=== PATIENT | female | born 1970 | race Caucasian/White ===

== ENCOUNTER 2018-02-14 20:07 | Inpatient (IN) | payer BC ==
[~2018-02-14] VITALS: Ht 167.6 cm; Wt 69.6 kg
[~2018-02-14 20:07] MED LIST: BUPIVACAINE /PF 0.25% 30 ML VIAL INJ ONE; DEXAMETHASONE SOD PHOSPHATE 4 MG/ML VIAL IVP ONE; KETOROLAC TROMETHAMINE 30 MG VIAL IVP ONE; LR 1,000 ML IV.SOLN IV ONE; MIDAZOLAM HCL 5 MG/5 ML VIAL IVP ONE; NS 1000 ML IV.SOLN IV ONE; NS IRRIG SOLN 1000 ML IR ONE; ONDANSETRON HCL 4 MG/2 ML VIAL IVP ONE; PROPOFOL 200MG/ 20ML VIAL (DIPRIVAN) IV ONE; ROCURONIUM BROMIDE 10 MG/ML (ZEMURON) IV ONE; SEVOFLURANE 15 MIN GAS INH ONE; SUCCINYLCHOLINE CHLORIDE 20 MG/ML(QUELICIN) IVP ONE; fentaNYL CITRATE 250 MCG/5 ML AMP IV ONE; fentaNYL CITRATE/PF 100 MCG/2 ML AMP IVP ONE
--- NOTE | 2018-02-14 20:12 | NUR ---
Patient to ER bed 7 to gown for evaluation. Side rails up. Report given to Edward PADILLA.
[2018-02-14 20:15] VITALS: BP_SYST 127
--- NOTE | 2018-02-14 20:20 | NUR ---
Pt complain of sudden onset of RLQ abd pain 9/10 worse with ambulation, nausea and vomiting. Ruba diarrhea. pt on bed. urine sample obtained. will continue to monitor
--- NOTE | 2018-02-14 20:29 | NUR ---
ER at bedside examining patient.
[2018-02-14] MEDS ORDERED: NACL 0.9% 1,000 ML IV ONE (20:32)
[2018-02-14 20:40] LABS: BILIRUBIN,URINE NEGATIVE (NEGATIVE); BLOOD, URINE NEGATIVE (NEGATIVE); CLARITY/URINE CLEAR (CLEAR); COLOR,URINE YELLOW (YELLOW); GLUCOSE,URINE NEGATIVE (NEGATIVE); KETONES,URINE NEGATIVE (NEGATIVE); LEUKOCYTE ESTERASE ,URINE NEGATIVE (NEGATIVE); NITRITE, URINE NEGATIVE (NEGATIVE); PROTEIN URINE NEGATIVE (NEGATIVE); UROBILINOGEN,URINE 0.2 (0.2-1.0)
[2018-02-14] MEDS ORDERED: ONDANSETRON HCL 4 MG/2 ML VIAL IVP ONE (20:45)
[2018-02-14] MEDS ORDERED: MORPHINE 4 MG/ML INJ. SYRINGE IVP ONE ×2 (20:45→22:00)
[2018-02-14] MEDS ORDERED: DIPHENHYDRAMINE INJ 50 MG/ML VIAL IVP ONE ×2 (20:45→22:00)
[2018-02-14] MEDS ORDERED: DIPHENHYDRAMINE INJ 50 MG/ML VIAL ONE ×2 (21:01→22:35)
[2018-02-14 21:04] LABS: RED CELL DISTRIBUTION WIDTH 12.5 % (9.0-15.0)
[2018-02-14 21:10] LABS: CALCIUM 8.6 mg/dL (8.4-11.0); CREATININE 0.9 mg/dL (0.55-1.30); POTASSIUM 3.9 mmol/L (3.5-5.1)
[2018-02-14 21:11] LABS: HEMATOCRIT 36.4 % (36-48); HEMOGLOBIN 12.5 g/dL (12.0-16.0); MEAN CORPUSCULAR HEMOGLOBIN 33 pg (27-31); MEAN CORPUSCULAR HGB CONC 34 % (32-36); MEAN CORPUSCULAR VOLUME 96 fL (79.0-98.0); PLATELET COUNT (AUTO) 288 K/uL (130-430); RED BLOOD CELL COUNT(AUTO) 3.79 MIL/uL (4.2-6.2); WHITE BLOOD COUNT (AUTO) 15.8 K/uL (4.8-10.8)
--- NOTE | 2018-02-14 21:11 | NUR ---
pt was take to radiology for CT with no contrast via pt's bed.
[2018-02-14 21:14] LABS: ALBUMIN 3.7 g/dL (3.4-4.8); BAND % (MANUAL) 0 % (0-6); BASOPHILS % (MANUAL) 0 % (0-2); EOSINOPHILS % (MANUAL) 0 % (0-7); LYMPHOCYTES % (MANUAL) 7 % (20-46); MONOCYTES % (MANUAL) 10 % (0-11); TOTAL BILIRUBIN 0.5 mg/dL (0.0-1.0)
--- NOTE | 2018-02-14 22:12 | NUR ---
Patient will be admitted to care of DR PRINCE. Admitted to [facility] unit. Will go to room 135. Belongings list completed. Summary report printed. Report will be given at bedside.
[2018-02-14] MEDS ORDERED: LEVOFLOXACIN 500 MG/D5W 100 ML IV ONE (22:15)
--- NOTE | 2018-02-14 22:45 | NUR ---
ADMIT NOTE Received pt from ER to the floor with a diagnosis of acute appendicitis. Admission process initiated. patient oriented to pain management, safety and call light-teach back done.
--- NOTE | 2018-02-14 22:45 | NUR ---
Patient will be admitted to care of . Admitted to [facility] unit. Will go to room 109C. Belongings list completed. Summary report printed. Report was given to Ismael PADILLA at bedside.
[2018-02-14 22:54] VITALS: BP_SYST 101
--- NOTE | 2018-02-14 23:10 | NUR ---
OPENING NOTES Bedside report received from admit nurse. Patient received AOx4, complaining of abdominal pain at this time. Breathing even and unlabored. IV site at right had, IVF infusing well, IV site shows no signs of infection or infiltration. Call light with patient, instructed to call for any assistance, patient verbalized understanding. Bed alarm on. Bed is locked and at lowest position. Will continue to monitor.
[2018-02-14] MEDS: HYDROmorphone 1 MG INJ. 1 MG/ML AMPUL IVP PRN (23:18)
[2018-02-15] MEDS: 0.45% NACL 1,000 ML IV SCH ×3 (00:23→21:43)
[2018-02-15 00:35] VITALS: BP_SYST 101
--- NOTE | 2018-02-15 01:00 | NUR ---
ROUNDS Patient sleeping at this time. No signs of discomfort noted. Chest rise and fall even bilaterally. Call light within reach. Bed alarm on. IVF infusing well. Will continue to monitor.
--- NOTE | 2018-02-15 02:00 | NUR ---
NAUSEA/PAIN Patient complained of nausea and pain at this time. Zofran and Dilaudid to be administered per PRN orders. Will continue to monitor and reassess.
[2018-02-15] MEDS: ONDANSETRON HCL 4 MG/2 ML VIAL IVP PRN ×3 (02:12→08:57)
[2018-02-15] MEDS: HYDROmorphone 1 MG INJ. 1 MG/ML AMPUL IVP PRN ×5 (02:18→20:07)
--- NOTE | 2018-02-15 04:00 | NUR ---
ROUNDS Patient in bed sleeping at this time. No s/s of acute distress noted. No SOB. Breathing even and unlabored. Call light with patient. Bed alarm on. IVF infusing well. Will continue to monitor.
[2018-02-15 04:23] LABS: BASOPHILS % (AUTO) 0.3 % (0.0-2.0); EOSINOPHILS % (AUTO) 0.1 % (0.0-4.0); HEMATOCRIT 33.8 % (36-48); HEMOGLOBIN 11.7 g/dL (12.0-16.0); LYMPHOCYTES # (AUTO) 1.1 K/uL (1.0-5.5); LYMPHOCYTES % (AUTO) 7.1 % (20.5-51.5); MEAN CORPUSCULAR HEMOGLOBIN 34 pg (27-31); MEAN CORPUSCULAR HGB CONC 35 % (32-36); MEAN CORPUSCULAR VOLUME 97 fL (79.0-98.0); MONOCYTES # (AUTO) 1.8 K/uL (0.0-1.0); MONOCYTES % (AUTO) 11.7 % (1.7-9.3); NEUTROPHILS # (AUTO) 12.1 K/uL (1.8-7.7); NEUTROPHILS % (AUTO) 80.8 % (40.0-70.0); PLATELET COUNT (AUTO) 257 K/uL (130-430); RED BLOOD CELL COUNT(AUTO) 3.49 MIL/uL (4.2-6.2); RED CELL DISTRIBUTION WIDTH 12.5 % (9.0-15.0)
[2018-02-15 04:49] LABS: ALBUMIN 3.3 g/dL (3.4-4.8); CREATININE 0.75 mg/dL (0.55-1.30); POTASSIUM 3.5 mmol/L (3.5-5.1); TOTAL BILIRUBIN 0.6 mg/dL (0.0-1.0)
--- NOTE | 2018-02-15 05:02 | NUR ---
ROUNDS Patient in bed, resting, awake. Patient states that she is comfortable at this time. No SOB. Breathing even and unlabored. IVF infusing well. Call light with patient. Bed alarm on. Will continue to monitor.
[2018-02-15 05:19] LABS: PROTHROMBIN TIME 9.7 SECS (9.5-12.5)
--- NOTE | 2018-02-15 06:38 | NUR ---
CLOSING NOTES Patient in bed resting at this time, awake. Patient states that she is comfortable. No s/s of acute distress noted. Breathing even and unlabored. IVF infusing well, IV site patent, shows no signs of infiltration or infection. All of patient's needs met throughout shift. Fall and safety precautions maintained throughout shift. Will continue to monitor until patient care is endorsed to oncoming day shift nurse.
--- NOTE | 2018-02-15 07:45 | NUR ---
AM rounds patient resting in bed, a/ox4, states mild but tolerable pain level, assessment complete, IV line is patent and infusing well, educated the patient on plan of care, pain management and call light system and to call for any assistance, she verbalized understanding, her is at bedside, bed in lowest position, two side rails up, call light within reach, fall and aspiration precautions in place.
[2018-02-15 08:08] VITALS: BP_SYST 131
--- NOTE | 2018-02-15 08:27 | NUR ---
Hygiene provided the patient with hygiene supplies, toothbrush/paste, mouth wash, comb, requested patient to call nurse for assistance to restroom, she verbalized understanding at this time, bed in lowest position, two side rails up, call light within reach, fall and aspiration precautions in place.
--- NOTE | 2018-02-15 09:01 | NUR ---
CHG/IV Zofran patient resting in bed, educated her on need for CHG bath prior to surgery and educated her on IV zofran uses and potential side effects, she verbalized understanding, assisted the patient to the restroom, assisted with CHG bath and provided a new gown, IV zofran administered, IV line is patent and infusing well, no other needs at this time, bed in lowest position, two side rails up, call light within reach, fall and aspiration precautions in place.
--- NOTE | 2018-02-15 09:21 | NUR ---
Patient off the unit to OR, stable condition.
[2018-02-15] MEDS ORDERED: LR 1,000 ML IV SCH (10:16)
[2018-02-15] MEDS ORDERED: HYDROmorphone 2 MG/ML VIAL IVP PRN ×2 (10:30)
[2018-02-15] MEDS ORDERED: MEPERIDINE HCL/PF 25 MG/ML DISP.SYRIN IVP PRN (10:30)
[2018-02-15] MEDS ORDERED: HYDROmorphone 1 MG INJ. 1 MG/ML AMPUL IVP PRN (10:30)
[2018-02-15] MEDS ORDERED: BUPIVACAINE /PF 0.25% 30 ML VIAL INJ ONE (10:34)
[2018-02-15] MEDS ORDERED: HYDROmorphone 1 MG INJ. 1 MG/ML AMPUL ONE (11:18)
--- NOTE | 2018-02-15 11:42 | NUR ---
Patient back on the unit stable condition, BP is low at 95/53 HR 72 at this time, continuing post-op vital signs at this time, 3 dressings noted on abdomen and x1 YESI drain, draining red and to suction at this time, patient denies pain at this time, asking if she can have juice, Dr. Onofre paged to see if patient can have clear liquids, IV line is patent and infusing well, continuing to monitor, bed in lowest position, three side rails up, call light within reach, fall and aspiration precautions in place, SCD's in place.
--- NOTE | 2018-02-15 11:50 | NUR ---
Dr. Onofre call back ok to place patient on clear liquid diet. Patient provided with juice and water at this time.
--- NOTE | 2018-02-15 12:13 | NUR ---
Pain medication patient resting in bed, awake, states 6/10 pain on abdomen, vital signs stable at this time, assisted the patient to restroom and back into bed, emptied YESI drain 80ml cranberry colored fluids, YESI to suction at this time, educated the patient on pain medication and pain management and potential side effects of medication, she verbalized understanding, IV line is patent and infusing well, no other needs at this time, bed in lowest position, three side rails up, call light within reach, fall and aspiration precautions in place.
[2018-02-15 12:15] VITALS: BP_SYST 95
--- NOTE | 2018-02-15 14:01 | NUR ---
RN rounds patient resting in bed, family at bedside, patient asking for assistance to restroom, assisted her, she tolerated well, emptied YESI drain 60ml at this time, YESI to suction at this time, patient complaining of gas type pains with some intermittent sharp to her abdomen, she said it is tolerable for now, will inform MD, no other needs at this time, bed in lowest position, three side rails up, call light within reach, fall and aspiration precautions in place, IV line is patent and infusing well.
--- NOTE | 2018-02-15 15:20 | NUR ---
RN rounds patient calling at this time, asking to use the restroom, assisted her, patient complaining of sharp right sided abdominal pain, patient states,"the Dilaudid works only for a little while then it wears off," will page Dr. Onofre for orders, patient assisted back into bed, bed in lowest position, three side rails up, call light within reach, fall and aspiration precautions in place, IV line is patent and infusing well.
--- NOTE | 2018-02-15 15:43 | NUR ---
Dr. Onofre pagetari for pain medication orders, will follow up.
--- NOTE | 2018-02-15 16:13 | NUR ---
Pain medication patient resting in bed, awake, states 6/10 pain on abdomen, vital signs stable at this time, educated the patient on pain medication and pain management and potential side effects of medication, she verbalized understanding, IV line is patent and infusing well, no other needs at this time, bed in lowest position, three side rails up, call light within reach, fall and aspiration precautions in place.
--- NOTE | 2018-02-15 17:03 | NUR ---
PAGED PAGED LESLI CAPPS AT [phone] SPOKE WITH ROSIE,
--- NOTE | 2018-02-15 17:54 | NUR ---
Dr. Onofre call back orders received for pain medication, informed the patient as well.
--- NOTE | 2018-02-15 17:54 | NUR ---
RN rounds patient resting in bed, asking for assistance to restroom, assistance given, patient ambulated well, returned to bed, bed in lowest position, two side rails, call light within reach, fall and aspiration precautions in place, patients states pain is tolerable at this time, informed the patient that Dr. Onofre ordered new pain medication, she verbalized understanding.
[2018-02-15] MEDS: HYDROcodone/ACETAMIN 10-325 MG TAB PO PRN (18:42)
--- NOTE | 2018-02-15 18:43 | NUR ---
Closing note patient resting in bed, awake, asking for assistance to the restroom, assisted the patient, she has a steady gait, patient also in pain, educated her on new PO pain medication uses and potential side effects, she tolerated well, all needs met, will endorse report to [facility] shift nurse, bed in lowest position, three side rails up, call light within reach, fall and aspiration precautions in place.
--- NOTE | 2018-02-15 19:14 | NUR ---
Closing note patient resting in bed, stable condition, all needs met, report endorsed to Barbara RN, patient bed in lowest position, three side rails up, call light within reach, fall and aspiration precautions in place.
[2018-02-15 20:00] VITALS: BP_SYST 107
--- NOTE | 2018-02-15 20:00 | NUR ---
Opening note/Pain mgmt Pt AAOx4, VSS afebrile. No s/s distress noted. Pt c/o 01/29 abd pain. Medicated with Dilaudid 1mg IVP as needed. IV fluids infusing as ordered. [place] SCDs placed back on. Pt walks to the bathroom with assist, steady gait. YESI drain noted with bloody drainage. Abd dressing with old drainaged noted. Call light within reach. Will continue to monitor.
--- NOTE | 2018-02-15 20:30 | NUR ---
I.S use Pt encouraged to use incentive spirometer 10x while awake. Pt demonstrated understanding doing 1500ml. Tolerated fairly. Will continue to monitor.
--- NOTE | 2018-02-16 | NUR ---
Pain mgmt/Bathroom Pt c/o pain 01/29 post op abd pain. Medicated with Dilaudid 1mg IVP as needed. Pt assisted to the bathroom. Pt denies dizziness. Pt voided. Assisted back to bed. IVF infusing as ordered R. hand 20G no infiltration noted. Hamilton SCDs placed back on. Call light within reach. To monitor.
[2018-02-16 01:00] VITALS: BP_SYST 120
--- NOTE | 2018-02-16 02:35 | NUR ---
Rounds Pt asleep, no s/s distress or discomfort noted. IVF infusing as ordered. Call light within easy reach. Will continue to monitor pt.
[2018-02-16] MEDS: HYDROmorphone 1 MG INJ. 1 MG/ML AMPUL IVP PRN ×6 (04:02→22:08)
--- NOTE | 2018-02-16 04:02 | NUR ---
Pain mgmt Pt awake c/o post op abd pain. Assisted pt to the bathroom. Pt voided. Assisted back to bed and medicated with Dilaudid 1mg IVP as needed for pain. IV fluids infusing as ordered. Hamilton SCDs placed back on. Emptied 5cc from YESI. Will continue to monitor pt.
--- NOTE | 2018-02-16 06:06 | NUR ---
Closing notes Pt asleep. No s/s distress or discomfort noted. IV fluids infusing as ordered R. hand 20G no infiltration noted. YESI drain intact. Hamilton SCDs in place. Call light within reach. All needs met. To endorse to am nurse.
[2018-02-16 07:16] LABS: BASOPHILS % (AUTO) 0.2 % (0.0-2.0); EOSINOPHILS % (AUTO) 0.1 % (0.0-4.0); HEMATOCRIT 29.7 % (36-48); HEMOGLOBIN 10.1 g/dL (12.0-16.0); LYMPHOCYTES # (AUTO) 1.3 K/uL (1.0-5.5); LYMPHOCYTES % (AUTO) 8.9 % (20.5-51.5); MEAN CORPUSCULAR HEMOGLOBIN 33 pg (27-31); MEAN CORPUSCULAR HGB CONC 34 % (32-36); MEAN CORPUSCULAR VOLUME 97 fL (79.0-98.0); MONOCYTES # (AUTO) 1.3 K/uL (0.0-1.0); MONOCYTES % (AUTO) 8.8 % (1.7-9.3); NEUTROPHILS # (AUTO) 11.6 K/uL (1.8-7.7); PLATELET COUNT (AUTO) 237 K/uL (130-430); RED BLOOD CELL COUNT(AUTO) 3.08 MIL/uL (4.2-6.2); RED CELL DISTRIBUTION WIDTH 12.7 % (9.0-15.0); WHITE BLOOD COUNT (AUTO) 14.3 K/uL (4.8-10.8)
[2018-02-16 07:21] LABS: ALBUMIN 2.8 g/dL (3.4-4.8); CALCIUM 8.1 mg/dL (8.4-11.0); CREATININE 0.66 mg/dL (0.55-1.30); POTASSIUM 3.6 mmol/L (3.5-5.1); TOTAL BILIRUBIN 0.4 mg/dL (0.0-1.0)
[2018-02-16] MEDS: 0.45% NACL 1,000 ML IV SCH ×3 (07:39→20:40)
[2018-02-16] MEDS: HYDROcodone/ACETAMIN 10-325 MG TAB PO PRN ×4 (07:39→16:59)
--- NOTE | 2018-02-16 07:40 | NUR ---
OPENING NOTE PATIENT A/OX3, SITTING UP IN BED WATCHING TELEVISION. COMPLAINS OF ABDOMINAL PAIN 11/29. NO COMPLAINTS OF DIFFICULTY BREATHING ON ROOM AIR. VITAL SIGNS TAKEN. EXTENSIONS OF RN, CHILLER TECHNICIAN AND RED MUD THICKENER OPERATOR WRITTEN ON WHITE BOARD. PLAN OF CARE DISCUSSED WITH PATIENT. ALL QUESTIONS AND CONCERNS ADDRESSED. YESI DRAIN SET TO SUCTION. NOC SHIFT REPORTED REMOVAL OF 30ML. DRESSING NEAR UMBILICUS IS SATURATED WITH SEROSANGINOUS FLUID. WILL NOTIFY DR. PRINCE. SAFETY PRECAUTIONS IN ORDER, CALL LIGHT IN REACH AND BED ALARM REFUSED BY PATIENT.
[2018-02-16 07:50] VITALS: BP_SYST 120
--- NOTE | 2018-02-16 09:09 | NUR ---
Dr Onofre Rounds Changes saturated dressing near umbilicus. States patient should ambulate more frequently to pass flattus and diet will be advanced as tolerated. Patient requests solid foods instead of sole fluids.
--- NOTE | 2018-02-16 10:34 | NUR ---
Nutrition Update Cory Scale 17 noted. Pt admitted for acute appendicitis. Diet: mechanical soft BMI: 24.8 kg/m2 RD to follow per nutrition care standards.
--- NOTE | 2018-02-16 11:05 | NUR ---
BATHROOM PATIENT ASSISTED TO BATHROOM. COMPLAINS OF SEVERE ABDOMINAL PAIN. EDUCATED ON TIME SCHEDULE FOR PAIN MEDICATION. PATIENT VERBALIZED UNDERSTANDING.
[2018-02-16 12:00] VITALS: BP_SYST 129
--- NOTE | 2018-02-16 13:02 | NUR ---
DAUGHTER AT BEDSIDE ASKS DAUGHTER TO GIVE PATIENT A BED BATH. SUPPLIES PROVIDED FOR PATIENT.
--- NOTE | 2018-02-16 15:05 | NUR ---
PATIENT RESTING: Patient resting quietly. No acute distress noted. Vital signs within normal range.
[2018-02-16 16:00] VITALS: BP_SYST 126
[2018-02-16] MEDS: ONDANSETRON HCL 4 MG/2 ML VIAL IVP PRN ×2 (17:00→22:07)
--- NOTE | 2018-02-16 17:14 | NUR ---
PAIN PATIENT COMPLAINS OF PAIN 11/29. NORCO 10-325MG PO ADMINISTERED AT THIS TIME. WILL CONTINUE TO MONITOR PAIN MANAGEMENT.
--- NOTE | 2018-02-16 18:55 | NUR ---
CLOSING NOTE PATIENT A/OX3, SITTING IN BED, PLAYING ON HER PHONE. COMPLAINED OF PAIN 7/10 AT THIS TIME. DILAUDID 1MG IVP ADMINISTERED, PER PAIN SCALE. ALL NEEDS MET AT THIS TIME. IV PATENT AND INFUSING FLUIDS. ALL NEEDS MET THROUGHOUT SHIFT. WILL ENDORSE PLAN OF CARE TO NOC SHIFT.
--- NOTE | 2018-02-16 19:40 | NUR ---
Opening Notes Pt AAOx4. VSS, afebrile. Pt states pain is ok at this time. YESI drain intact emptied 10cc at this time. Abd dressing x3 C/D/I. IVF infusing R. hand no infiltration noted. Call light within reach. Will continue to monitor.
[2018-02-16 20:00] VITALS: BP_SYST 150
--- NOTE | 2018-02-16 20:45 | NUR ---
Rounds/Bathroom Pt ambulated to the bathroom. Denies pain at this time. New IV bag started on R hand IV clear, patent. Pt back to bed. Hamilton SCDs in place. Encouraged to call when in pain. Pt agreeable. Call light within reach. To monitor.
--- NOTE | 2018-02-16 22:08 | NUR ---
Rounds/Pain mgmt Pt assisted to the bathroom. Medicated for c/o post op pain 01/29. IV fluids infusing as ordered. Hamilton SCDs in place. Call light within reach. Will continue to monitor.
[2018-02-17] MEDS: HYDROcodone/ACETAMIN 10-325 MG TAB PO PRN ×2 (00:46→06:04)
--- NOTE | 2018-02-17 00:46 | NUR ---
Rounds/Pain mgmt Assisted pt to the bathroom. Pt c/o pain 11/29, medicated with Brutus 1tab as needed. YESI drain emptied 40cc bloody drainage. Hamilton SCDs in place. Call light within reach. Will continue to monitor.
[2018-02-17 01:10] VITALS: BP_SYST 127
--- NOTE | 2018-02-17 04:15 | NUR ---
Rounds/Pain mgmt Pt c/o pain 01/29, medicated with Dilaudid 1mg IVP as needed. IVF infusing as ordered. Hamilton SCDs on. Call light within reach. Will continue to monitor pt.
[2018-02-17] MEDS: HYDROmorphone 1 MG INJ. 1 MG/ML AMPUL IVP PRN ×2 (04:17→08:48)
--- NOTE | 2018-02-17 06:00 | NUR ---
Closing notes/Ambulate to bathroom Pt alert, awake c/o 6/10 RUQ pain, medicated with Daisetta 1 tab PO as needed. Abd dressings x 3 C/D/I. YESI emptied 40cc light red drainage total of 90cc this shift. IVF infusing R. hand 20G clear, patent. Pt states she is passing gas. Call light/items within reach. To endorse to am nurse.
[2018-02-17] MEDS: 0.45% NACL 1,000 ML IV SCH (06:04)
[2018-02-17 06:47] LABS: BASOPHILS # (AUTO) 0.1 K/uL (0.0-0.2); BASOPHILS % (AUTO) 1.4 % (0.0-2.0); EOSINOPHILS # (AUTO) 0.2 K/uL (0.0-0.4); HEMATOCRIT 31.9 % (36-48); HEMOGLOBIN 10.9 g/dL (12.0-16.0); LYMPHOCYTES # (AUTO) 2.8 K/uL (1.0-5.5); LYMPHOCYTES % (AUTO) 27.7 % (20.5-51.5); MEAN CORPUSCULAR HEMOGLOBIN 33 pg (27-31); MEAN CORPUSCULAR HGB CONC 34 % (32-36); MEAN CORPUSCULAR VOLUME 98 fL (79.0-98.0); MONOCYTES # (AUTO) 0.9 K/uL (0.0-1.0); NEUTROPHILS # (AUTO) 6.1 K/uL (1.8-7.7); NEUTROPHILS % (AUTO) 59.9 % (40.0-70.0); PLATELET COUNT (AUTO) 264 K/uL (130-430); RED BLOOD CELL COUNT(AUTO) 3.27 MIL/uL (4.2-6.2); RED CELL DISTRIBUTION WIDTH 12.4 % (9.0-15.0); WHITE BLOOD COUNT (AUTO) 10.1 K/uL (4.8-10.8)
[2018-02-17 06:50] LABS: CALCIUM 8.2 mg/dL (8.4-11.0); CREATININE 0.69 mg/dL (0.55-1.30)
[2018-02-17 07:12] LABS: ALBUMIN 2.8 g/dL (3.4-4.8); TOTAL BILIRUBIN 0.1 mg/dL (0.0-1.0)
--- NOTE | 2018-02-17 07:15 | NUR ---
Opening Note: Patient laying in bed resting, patient denies intolerable pain and discomfort. Breathing is even and unlabored with no distress noted. IV patent and intact running IV fluids per MD order. Incentive spirometer at bedside, and patient verbalized understanding of use. YESI drain patent and intact. Incision dressing clean, dry and intact. SCD's in place. Safety precautions in place; bed in lowest position, wheels locked, sdie rails x3, bed alarm activated and call light within reach. No current needs. Will continue to monitor.
--- NOTE | 2018-02-17 08:20 | NUR ---
Dr. Onofre at bedside: Dr. Onofre at bedside. Dressing changed. Patient tolerated well.
[2018-02-17 08:45] VITALS: BP_SYST 130
[2018-02-17] MEDS ORDERED: HYDR-4272 PO (09:36)
[2018-02-17] MEDS ORDERED: LEVO250T2 PO (09:36)
[2018-02-17 09:52] VITALS: BP_SYST 130
--- NOTE | 2018-02-17 10:01 | NUR ---
Rounding: Patient laying in bed resting, no distress noted. No current needs. Will continue to monitor.
--- NOTE | 2018-02-17 11:30 | NUR ---
D/C Patient Patient given medication reconciliation form and D/C instructions. Exit Care provided. Patient verbalized understanding. MD discussed with patient the results and treatment provided. Ambulatory with steady gait for discharge to home. Patient in stable condition, ID band removed. IV catheter removed, intact and dressing applied, no active bleeding. Rx of meds given. Patient educated on pain management. All belongings sent with patient. Patient educated on emptying YESI drain. Patient educated on use of IS. Patient erbalized understanding.
== END 2018-02-17 11:30 | disposition home or self-care (01) | DRG 343 ==
LOC: SED 20:07 → SMU 22:13
PROVIDERS: ADMIT Specialist; ATTEND Specialist
PROC: 0DTJ4ZZ Resection of Appendix, Percutaneous Endoscopic Approach (ICD-10-PCS; principal; 2018-02-15 09:15)
DX: K35.80 Unspecified acute appendicitis (principal); K38.1 Appendicular concretions; I34.1 Nonrheumatic mitral (valve) prolapse; K63.89 Other specified diseases of intestine
CPT/HCPCS: 36415; 71045; 80053; 81003; 84703; 85007; 85025; 85027; 85610-TC; 85730-TC; 86886; 86900; 86901; 87081; 88304; 96374; 96375; 99285; C1727; J0330; J1100; J1170; J1200; J1885; J1956; J2250; J2270; J2405; J2704; J3010; J3490; J7030; J7120

== ENCOUNTER 2019-12-02 13:32 | Emergency (ER) | payer BC ==
[~2019-12-02] VITALS: Ht 167.6 cm; Wt 70.3 kg
[~2019-12-02 13:32] MED LIST changes: -BUPIVACAINE /PF 0.25% 30 ML VIAL INJ ONE; -DEXAMETHASONE SOD PHOSPHATE 4 MG/ML VIAL IVP ONE; +HYDR-4272 PO; -KETOROLAC TROMETHAMINE 30 MG VIAL IVP ONE; +LEVO250T2 PO; -LR 1,000 ML IV.SOLN IV ONE; -MIDAZOLAM HCL 5 MG/5 ML VIAL IVP ONE; -NS 1000 ML IV.SOLN IV ONE; -NS IRRIG SOLN 1000 ML IR ONE; -ONDANSETRON HCL 4 MG/2 ML VIAL IVP ONE; -PROPOFOL 200MG/ 20ML VIAL (DIPRIVAN) IV ONE; -ROCURONIUM BROMIDE 10 MG/ML (ZEMURON) IV ONE; -SEVOFLURANE 15 MIN GAS INH ONE; -SUCCINYLCHOLINE CHLORIDE 20 MG/ML(QUELICIN) IVP ONE; -fentaNYL CITRATE 250 MCG/5 ML AMP IV ONE; -fentaNYL CITRATE/PF 100 MCG/2 ML AMP IVP ONE
[2019-12-02] MEDS ORDERED: ONDANSETRON HCL 4 MG/2 ML VIAL IVP ONE (14:00)
[2019-12-02] MEDS ORDERED: KETOROLAC TROMETHAMINE 60 MG/2 ML VIAL IM ONE (14:00)
[2019-12-02 14:01] VITALS: BP_SYST 120
[2019-12-02] MEDS ORDERED: SERT25TA77 PO (14:01)
[2019-12-02 15:22] LABS: BILIRUBIN,URINE NEGATIVE (NEGATIVE); BLOOD, URINE NEGATIVE (NEGATIVE); CLARITY/URINE CLEAR (CLEAR); COLOR,URINE YELLOW (YELLOW); GLUCOSE,URINE NEGATIVE (NEGATIVE); KETONES,URINE NEGATIVE (NEGATIVE); LEUKOCYTE ESTERASE ,URINE NEGATIVE (NEGATIVE); NITRITE, URINE NEGATIVE (NEGATIVE); PH,URINE 7.5 (5.0-8.0); PROTEIN URINE NEGATIVE (NEGATIVE); UROBILINOGEN,URINE 0.2 (0.2-1.0)
[2019-12-02 15:26] LABS: BASOPHILS # (AUTO) 0.1 K/uL (0.0-0.2); EOSINOPHILS # (AUTO) 0.1 K/uL (0.0-0.4); EOSINOPHILS % (AUTO) 1.8 % (0.0-4.0); HEMOGLOBIN 12.6 g/dL (12.0-16.0); LYMPHOCYTES % (AUTO) 31.9 % (20.5-51.5); MEAN CORPUSCULAR HEMOGLOBIN 32 pg (27-31); MEAN CORPUSCULAR HGB CONC 33 % (32-36); MEAN CORPUSCULAR VOLUME 96 fL (79.0-98.0); MONOCYTES # (AUTO) 0.9 K/uL (0.0-1.0); MONOCYTES % (AUTO) 13.9 % (1.7-9.3); NEUTROPHILS # (AUTO) 3.2 K/uL (1.8-7.7); NEUTROPHILS % (AUTO) 51.4 % (40.0-70.0); PLATELET COUNT (AUTO) 240 K/uL (130-430); RED BLOOD CELL COUNT(AUTO) 3.97 MIL/uL (4.2-6.2); RED CELL DISTRIBUTION WIDTH 13.3 % (9.0-15.0); WHITE BLOOD COUNT (AUTO) 6.3 K/uL (4.8-10.8)
[2019-12-02 15:34] LABS: CALCIUM 8.9 mg/dL (8.4-11.0); CREATININE 0.95 mg/dL (0.55-1.30); POTASSIUM 4.2 mmol/L (3.5-5.1)
[2019-12-02 15:39] LABS: ALBUMIN 3.7 g/dL (3.4-4.8); TOTAL BILIRUBIN 0.2 mg/dL (0.0-1.0)
[2019-12-02] MEDS ORDERED: MAG HYDROX/AL HYDROX/SIMETH 30 ML, DICYCLOMINE HCL 20 MG, LIDOCAINE VISCOUS 2% 15ML (PO... PO ONE ×3 (16:15)
[2019-12-02 16:38] VITALS: BP_SYST 120
== END 2019-12-02 16:38 | disposition home or self-care (01) ==
LOC: SED 13:32
DX: K29.70 Gastritis, unspecified, without bleeding (principal); R10.13 Epigastric pain
CPT/HCPCS: 36415; 76700; 80053; 81003; 81025; 82150; 83605; 83690; 84703; 85025; 96372; 96374; 99285; J1885; J2001; J2405